=== PATIENT | female | born 1950 | race Caucasian/White ===

== ENCOUNTER 2019-03-29 10:15 | Inpatient (IN) | payer MEDICARE ==
[~2019-03-29] VITALS: Ht 165.1 cm; Wt 88.2 kg
[2019-03-29 12:00] VITALS: BP 149/75
[2019-03-29] MEDS ORDERED: CEPH-264 PO (13:23)
[2019-03-29] MEDS ORDERED: FAMO40TA4 PO (13:23)
[2019-03-29] MEDS ORDERED: ASPI-630 PO (13:23)
[2019-03-29] MEDS ORDERED: AMLO10TA8 PO (13:23)
[2019-03-29] MEDS ORDERED: QUET25TA5 PO (13:23)
[2019-03-29] MEDS ORDERED: VENL150C PO (13:23)
[2019-03-29] MEDS ORDERED: ATOR40TA59 PO (13:23)
[2019-03-29] MEDS ORDERED: MAG HYDROX/AL HYDROX/SIMETH 30 ML ORAL.SUSP PO PRN (13:30)
[2019-03-29] MEDS ORDERED: MAGNESIUM HYDROXIDE 2,400 MG/30 ML ORAL.SUSP. PO PRN (13:30)
--- NOTE | 2019-03-29 13:38 | NUR ---
Admission Note with Justification for Admission to [facility] Patient admitted to [facility] for protective oversight for emergency stabilization of acute psychiatric crisis. Pt admitted from: [facility] Mode of arrival: Secure Transport Accompanied By: Family Precipitating behaviors that initiated intake and admission: delusional, labile mood, manic, verbally aggressive, depression, manipulative, anxious, suicidal thoughts with no plan, brother committed suicide 5 years ago in front of her and has struggled since. Description of failure of out patient attempts at stabilization in previous setting list behavior and medication trials: Hospitalization, Ativan, Effexor XR, Seroquel Behaviors and assessment findings upon admission: calm, cooperative, compliant, hyperverbal Plan: Admit for protective oversight for adjustment and stabilization of medications, behaviors and mood. Intense treatment regimen including groups, medication adjustments, therapy, consistent regimen for ADL's, self care, and sleep hygiene. Daily monitoring by Inpatient staff, Psychiatry, and Medical Physician.
[2019-03-29] MEDS ORDERED: QUEtiapine 25 MG TABLET. PO SCH ×2 (13:45)
[2019-03-29] MEDS ORDERED: VENLAFAXINE 50 MG TABLET. PO SCH (14:00)
[2019-03-29 14:01] LABS: BASO # 0.1 x10^3/uL (0.0-0.2); BASO % 1 % (0-3); EOS # 0.2 x10^3/uL (0.0-0.7); EOS % 3 % (0-3); HEMATOCRIT 31.7 % (36.0-47.0); HEMOGLOBIN 10.4 g/dL (12.0-15.5); LYMPH # 1.7 x10^3/uL (1.0-4.8); LYMPH % 26 % (24-48); MEAN CORPUSCULAR HEMOGLOBIN 29 pg (25-35); MEAN CORPUSCULAR HGB CONC 33 g/dL (31-37); MEAN CORPUSCULAR VOLUME 87 fL (79-100); MONO # 0.4 x10^3/uL (0.0-1.1); MONO % 6 % (0-9); NEUT # 4.2 x10^3uL (1.8-7.7); NEUT % 64 % (31-73); PLATELET COUNT 498 x10^3/uL (140-400); RED BLOOD COUNT 3.63 x10^6/uL (3.50-5.40); RED CELL DISTRIBUTION WIDTH 16.2 % (11.5-14.5); WHITE BLOOD COUNT 6.5 x10^3/uL (4.0-11.0)
[2019-03-29 14:09] LABS: ALBUMIN 3.1 g/dL (3.4-5.0); ALBUMIN/GLOBULIN RATIO 0.8 (1.0-1.7); CALCIUM 9.4 mg/dL (8.5-10.1); CREATININE 0.8 mg/dL (0.6-1.0); GFR 71.1; MAGNESIUM 1.6 mg/dL (1.8-2.4); POTASSIUM 3.8 mmol/L (3.5-5.1); TOTAL BILIRUBIN 0.3 mg/dL (0.2-1.0); TOTAL PROTEIN 6.9 g/dL (6.4-8.2)
--- NOTE | 2019-03-29 14:17 | NUR ---
Patient calm, cooperative, compliant with medications and assessments. Good appetite. Participated in group, social with peers. Effexor XR and Seroquel held due to having been administered this morning at [facility] before transfer to [facility].
[2019-03-29 15:59] VITALS: BP 131/64
--- NOTE | 2019-03-29 16:13 | NUR ---
TICK INSPECTOR reports that patient stated "my son's dog on September 17 from a natural disaster. TICK INSPECTOR then reports that patient changed the story, stating that "my son's dog on a privacy gate because of the heat but we was unable to take it to the hospital because the roads were frozen over. When we got to the hospital they couldn't do an autopsy because the body was frozen solid."
[2019-03-29] MEDS: ACETAMINOPHEN 325 MG TABLET PO PRN (18:23)
--- NOTE | 2019-03-29 18:24 | NUR ---
Patient complains of left knee pain, rates it at a 10 when she is standing up or walking. Medicated with PRN Tylenol 650mg at 1830.
[2019-03-29] MEDS ORDERED: ATORVASTATIN CALCIUM 20 MG TABLET PO SCH (21:00)
[2019-03-29] MEDS: LACTOBACILLUS RHAMNOSUS GG 1 CAPSULE. PO SCH (21:36)
[2019-03-29] MEDS: CEPHALEXIN 250 MG CAPSULE PO SCH (21:36)
[2019-03-29 22:07] LABS: THYROXINE 8.8 ug/dL (4.5-12.0)
--- NOTE | 2019-03-29 22:26 | PDOC ---
Exam Note: Gabe Note: Please also refer to the separate dictated note~for this date of service dictated separately. Discussed the patient with Nursing staff reviewed the chart.~Reviewed interim history and current functioning. Reviewed vital signs,~Labs/ Radiology~and current medications noted below. Continue current treatment with the changes noted in the dictated addendum note Assessment: Vital Signs/I&O: Vital Signs Date Time Temp Pulse Resp B/P (MAP) Pulse Ox O2 Delivery O2 Flow Rate FiO2 03/29/19 15:59 97.6 101 20 131/64 (86) 94 Labs: Laboratory Tests Test 03/29/19 13:45 White Blood Count 6.5 x10^3/uL (4.0-11.0) Red Blood Count 3.63 x10^6/uL (3.50-5.40) Hemoglobin 10.4 g/dL (12.0-15.5) L Hematocrit 31.7 % (36.0-47.0) L Mean Corpuscular Volume 87 fL (79-100) Mean Corpuscular Hemoglobin 29 pg (25-35) Mean Corpuscular Hemoglobin Concent 33 g/dL (31-37) Red Cell Distribution Width 16.2 % (11.5-14.5) H Platelet Count 498 x10^3/uL (140-400) H Neutrophils (%) (Auto) 64 % (31-73) Lymphocytes (%) (Auto) 26 % (24-48) Monocytes (%) (Auto) 6 % (0-9) Eosinophils (%) (Auto) 3 % (0-3) Basophils (%) (Auto) 1 % (0-3) Neutrophils # (Auto) 4.2 x10^3uL (1.8-7.7) Lymphocytes # (Auto) 1.7 x10^3/uL (1.0-4.8) Monocytes # (Auto) 0.4 x10^3/uL (0.0-1.1) Eosinophils # (Auto) 0.2 x10^3/uL (0.0-0.7) Basophils # (Auto) 0.1 x10^3/uL (0.0-0.2) Sodium Level 134 mmol/L (136-145) L Potassium Level 3.8 mmol/L (3.5-5.1) Chloride Level 98 mmol/L (98-107) Carbon Dioxide Level 26 mmol/L (21-32) Anion Gap 10 (6-14) Blood Urea Nitrogen 9 mg/dL (7-20) Creatinine 0.8 mg/dL (0.6-1.0) Estimated GFR (Cockcroft-Gault) 71.1 BUN/Creatinine Ratio 11 (6-20) Glucose Level 119 mg/dL (70-99) H Calcium Level 9.4 mg/dL (8.5-10.1) Magnesium Level 1.6 mg/dL (1.8-2.4) L Total Bilirubin 0.3 mg/dL (0.2-1.0) Aspartate Amino Transferase (AST) 27 U/L (15-37) Alanine Aminotransferase (ALT) 50 U/L (14-59) Alkaline Phosphatase 66 U/L (46-116) Total Protein 6.9 g/dL (6.4-8.2) Albumin 3.1 g/dL (3.4-5.0) L Albumin/Globulin Ratio 0.8 (1.0-1.7) L Thyroxine (T4) 8.8 ug/dL (4.5-12.0) Total Triiodothyronine (TT3) 107 ng/dL (71-180) Current Medications: Meds: Current Medications Medications (Trade) Dose Ordered Sig/Mickey Route PRN Reason Start Time Stop Time Status Last Admin Dose Admin Cephalexin HCl (Keflex) 500 mg BID PO 03/29/19 21:00 04/01/19 20:59 03/29/19 21:36 Acetaminophen (Tylenol) 650 mg PRN Q6HRS PRN PO PAIN / TEMP 03/29/19 13:30 03/29/19 18:23 Lactobacillus Rhamnosus (Culturelle) 1 cap BID PO 03/29/19 21:00 03/29/19 21:36 I have reviewed the current psychotropics carefully including drug interactions. Risk benefit ratio favors no change other than as noted in my dictated progress note. Diagnosis: Problems: (1) Anxiety disorder (2) Mild cognitive disorder (3) Impulse control disorder AMBER SWAIN MD Mar 29, 2019 22:26
[2019-03-29 23:11] LABS: HEMOGLOBIN A1C 5.7 % (4.8-5.6)
--- NOTE | 2019-03-29 23:26 | NUR ---
Nursing note: Assumed care of pt. this evening, she was sitting out in the day room. She has been liable. cooperative, and angry about being here. She stated, "this place is different then what I was told, I did not know their was going to be polo's here. I want a jury." This hand sign writer explained to her that this is a hospital, so their will be polo's here. Encouraged her to talk with are high school social science teacher tomorrow. She has been compliant with taking her HS meds whole this evening. She has not been combative at this time. Called Dr. Peterson due to pt. being upset/anxiety, received order see MAR.
[2019-03-30 06:39] VITALS: BP 150/75
[2019-03-30] MEDS: CEPHALEXIN 250 MG CAPSULE PO SCH ×2 (08:04→19:50)
[2019-03-30] MEDS: LACTOBACILLUS RHAMNOSUS GG 1 CAPSULE. PO SCH ×2 (08:04→19:49)
[2019-03-30] MEDS: FAMOTIDINE 20 MG TABLET PO SCH (08:07)
[2019-03-30] MEDS: ASPIRIN ENTERIC COATED 81 MG TABLET.DR. PO SCH (08:08)
[2019-03-30] MEDS: VENLAFAXINE 50 MG TABLET. PO SCH ×3 (08:08→19:53)
[2019-03-30] MEDS: amLODIPine BESYLATE 10 MG TABLET PO SCH (08:08)
--- NOTE | 2019-03-30 12:27 | HP ---
ADMIT DATE: 03/29/2019 PSYCHIATRIC ADMISSION HISTORY AND EVALUATION This is a late entry, date of service 03/29 and covers elements not covered in my initial note of 03/29. IDENTIFYING DATA: The patient is a 68-year-old female referred to us from [facility] in [place] by Dr. Jeremy Arcos, her primary care physician on account of worsening delusions, marked mood lability, being manic, verbally aggressive, voicing suicidal thoughts, but no plan. Reportedly, her brother committed suicide 5 years ago and she has struggled since then. She has been hospitalized at [facility] in [place] for the past 10 days with worsening confusion, agitation, depression in association with marked mood lability, being manic, verbally aggressive, manipulative with suicidal ideation and failure for outpatient psychiatric intervention. We have been asked to consider hospitalizing the patient a few days back when she was still being medically stabilized and then finally admitted on 03/29. CHIEF COMPLAINT: "I'm okay." HISTORY OF PRESENT ILLNESS: The patient has a history of increasing symptoms of depression with recent increased short-term memory deficits and paranoia. She did have a UTI and this was treated at [facility]. She has had sleep and appetite changes. No active homicidal ideation, but has been quite paranoid. PAST PSYCHIATRIC HISTORY: As above and she has had outpatient psychiatric treatment, though details are unclear. It might have been with Dr. Luna and we will obtain those records. PAST MEDICAL HISTORY: Positive for status post UTI; otitis media, right ear; chronic pansinusitis; hypertension; GERD; hearing loss; hyperlipidemia; osteoarthritis; restless leg syndrome; status post cataract removal; submucosal resection of turbinates; sinus endoscopy, bilateral endoscopic sinus surgery; tonsillectomy. ACCU-CHEKS: None. DIET: Cardiac. MEDICATIONS: Takes it whole. Ambulates with walker with 2-person assist. CODE STATUS: DNR. ALLERGIES: Negative. CURRENT PSYCHOTROPICS: Effexor XR 150 mg a day, Seroquel 25 mg at 1700, Zyprexa was added p.r.n. after I was called around midnight of last night after I had seen the patient and she was noted to be quite delusional, agitated, difficult to manage on the unit. FAMILY HISTORY: Noncontributory. SOCIAL HISTORY: The patient resides at home with her . Her son is her legal guardian. REACTION TO HOSPITALIZATION: The patient reluctantly accepting of this. ASSETS: Supportive family. MENTAL STATUS EXAMINATION: The patient was seen individually in evening of 03/29. She is oriented to herself and situation. She is hard of hearing, has some tremors consequent to anxiety and did better on Ativan. No CV, , pulmonary, eye system symptoms on review. Her speech is coherent. She is depressed, anxious, somewhat paranoid. No active suicidal or homicidal ideation. She does have some short-term memory deficits. Attention span short. Language function intact. Intellect average. Insight somewhat limited. Minimizes most of the problems prompting admission. No active suicidal or homicidal ideation. She minimizes suicidal ideation prior to admission. She is alert, oriented x 3. IMPRESSION: Major depressive disorder with psychotic features in partial remission, rule out bipolar 1 disorder, mixed with psychotic features; anxiety disorder, unspecified; mild cognitive impairment. Rest diagnoses as above. PLAN: Admit to geropsychiatry unit at [facility]. I will see the patient daily individually from a psychiatric standpoint. Medical followup with Dr. Hamm. The patient has completed a course of Rocephin and started on Keflex for her UTI. We will continue current psychotropics, observe baseline, then make further adjustments as clinically indicated. ESTIMATED LENGTH OF STAY: 7-10 days. DISPOSITION PLANS: Possibly back home with outpatient psychiatric treatment that time. MAN Daren SWAIN MD DR: REY/nabor JOB#: [id number] / [id number]
[2019-03-30] MEDS: ACETAMINOPHEN 325 MG TABLET PO PRN (15:50)
[2019-03-30 16:40] VITALS: BP 130/77
--- NOTE | 2019-03-30 16:51 | NUR ---
Pt calm and compliant with meds and assessment. Pt concerned about her belongings. This nurse found what pt was looking for in pt closet. Also pt asking about her lorazepam which is not on her mar. Pt upset that it was taken off her med list.
[2019-03-30] MEDS: QUEtiapine 25 MG TABLET. PO SCH (17:23)
[2019-03-30] MEDS: CHOLECALCIFEROL (VITAMIN D3) 50,000 UNIT CAPSULE PO SCH (18:00)
[2019-03-30] MEDS: ATORVASTATIN CALCIUM 20 MG TABLET PO SCH (19:53)
--- NOTE | 2019-03-30 22:40 | PDOC ---
Exam Note: Gabe Note: Please also refer to the separate dictated note~for this date of service dictated separately.~Patient seen individually. Discussed the patient with Nursing staff reviewed the chart.~Reviewed interim history and current functioning. Reviewed vital signs,~Labs/ Radiology~and current medications noted below. Continue current treatment with the changes noted in the dictated addendum note Assessment: Vital Signs/I&O: Vital Signs Date Time Temp Pulse Resp B/P (MAP) Pulse Ox O2 Delivery O2 Flow Rate FiO2 03/30/19 16:40 98.3 101 20 130/77 (94) 97 Room Air I & O 03/29/19 03/29/19 03/30/19 14:59 22:59 06:59 Intake Total 120 ml Balance 120 ml Current Medications: Meds: Current Medications Medications (Trade) Dose Ordered Sig/Mickey Route PRN Reason Start Time Stop Time Status Last Admin Dose Admin Amlodipine Besylate (Norvasc) 10 mg DAILY PO 03/30/19 09:00 03/30/19 08:08 Aspirin (Aspirin Enteric Coated) 81 mg DAILYWBKFT PO 03/30/19 08:00 03/30/19 08:08 Famotidine (Pepcid) 40 mg DAILY PO 03/30/19 09:00 03/30/19 08:07 Atorvastatin Calcium (Lipitor) 40 mg QHS PO 03/30/19 21:00 03/30/19 19:53 Quetiapine Fumarate (SEROquel) 25 mg 1700 PO 03/30/19 17:00 03/30/19 17:23 Venlafaxine HCl (Effexor) 50 mg TID PO 03/30/19 09:00 03/30/19 19:53 I have reviewed the current psychotropics carefully including drug interactions. Risk benefit ratio favors no change other than as noted in my dictated progress note. Diagnosis: Problems: (1) Anxiety disorder (2) Mild cognitive disorder (3) Impulse control disorder AMBER SWAIN MD Mar 30, 2019 22:40
--- NOTE | 2019-03-30 23:56 | NUR ---
Nursing Note Pt is pleasant and cooperative, but bordering on demanding. She has multiple requests and demands regarding her bedding, elevation of the head and feet of the bed, and insists on looking at her belongings. She is perseverating on the fact that she was told she could have 3 sets of clothing, and 3 sets of PJ's., and she has been only given one set of PJ's to wear. Upon looking at the inventory sheet, she did not have 3 PJ sets only 1. She is hyperverbal this pm, and very tangential. It is difficult to get a word in to redirect her. She goes on and on talking from topic to topic, although they have a common thread, it is still constant and manic in nature. She is also loud, and a bit grandiose when talking about her incredibly successful children.
--- NOTE | 2019-03-31 06:27 | EKG ---
[address] [address] Test Date: 2019-03-29 Test Time: 21:42:16 Pat Name: LUDIN MENESES Department: Room: [address] [place] [address] Gender: F Product Marketer: : 1950 Requested By: AMBER SWAIN Order Number: [id number] Reading MD: Measurements Intervals [place] Rate: P: [place]: QRS: QRSD: T: QT: QTc: Interpretive Statements
[2019-03-31 06:28] VITALS: BP 116/77
[2019-03-31] MEDS: ASPIRIN ENTERIC COATED 81 MG TABLET.DR. PO SCH (08:32)
[2019-03-31] MEDS: VENLAFAXINE 50 MG TABLET. PO SCH ×3 (08:32→19:26)
[2019-03-31] MEDS: LACTOBACILLUS RHAMNOSUS GG 1 CAPSULE. PO SCH ×2 (08:32→19:26)
[2019-03-31] MEDS: FAMOTIDINE 20 MG TABLET PO SCH (08:33)
[2019-03-31] MEDS: CEPHALEXIN 250 MG CAPSULE PO SCH ×2 (08:33→19:26)
[2019-03-31] MEDS: amLODIPine BESYLATE 10 MG TABLET PO SCH (08:33)
--- NOTE | 2019-03-31 10:56 | NUR ---
Pt has been hyperverbal and anxious this morning. Pt walked in the dining room this morning and greeted everyone as she passed. Pt hollers out "Jenna, Jenna" each time she passes this nurse. Pt A/Ox4. Compliant with whole medications. Pt denies SI and depression, stating that she feels better than she has in a long time. Will continue to monitor.
--- NOTE | 2019-03-31 15:11 | NUR ---
Activity Therapy Assessment Completed based on observation and interview. Pt. was in the day room and greeted therapist. Pt. uses a walker to ambulate and is fairly sturdy on her feet. Pt. is hyperverbal and tangential, needing gentle redirection to stay on topic. Pt. lives with her , Beny, in [place]. She has a son and a daughter that she sees fairly often and one grandchild that she 'spoils rotten'. Pt. goes by her middle name 'Lashawn' and is aware she is at the hospital, stating her reason for admission as 'depression I guess but I have been feeling better that I have felt in a long time'. It was revealed to therapist that Pt. has a current UTI and is receiving treatment for it. Pt. attends most groups and seems interested in most leisure activities, though she was unable to list specific ones when therapist asked. Pt. speaks clearly and rapidly, socializes well with others, can be anxious at times but easily redirected. Pt. enjoys taking her grandson to the movies and has seemed to enjoy trivia activities as well as games and spending time in the garden. Initial goal aimed to increase stress management skill and leisure awareness: Pt. will engage in at least one Activity Therapy group per day.
[2019-03-31] MEDS: ACETAMINOPHEN 325 MG TABLET PO PRN ×2 (15:39→20:51)
[2019-03-31] MEDS: QUEtiapine 25 MG TABLET. PO SCH ×3 (15:39→19:27)
[2019-03-31 15:58] VITALS: BP 164/69
--- NOTE | 2019-03-31 16:17 | CONS ---
DATE OF CONSULTATION: 03/30/2019 REASON FOR CONSULTATION: Medical management. HISTORY OF PRESENT ILLNESS: The patient is a 68-year-old female patient who was referred to [facility] from [facility] in [place] by Dr. Jeremy Arcos, her primary care physician, on account of worsening delusion, marked mood lability, being manic, verbally aggressive, voicing suicidal thoughts, but no plans. Reportedly, her brother committed suicide 5 years ago and she has struggled with this since then. She has been hospitalized to [facility] in [place] for the past 10 days with worsening confusion, agitation, depression in association with marked mood lability being manic, manipulative with suicidal ideation, failure for outpatient psychiatric intervention and she was admitted for inpatient psychiatric stabilization. PAST PSYCHIATRIC HISTORY: Significant for recent increased short term memory symptoms, depression. She was actually treated for UTI at [facility]. PAST MEDICAL HISTORY: Significant for otitis media, right ear, chronic pansinusitis, hypertension, gastroesophageal reflux disease, hearing loss, hyperlipidemia, osteoarthritis, restless leg syndrome. She has also recurrent UTIs. PAST SURGICAL HISTORY: Significant for cataract extraction, submucosal resection of turbinates and sinus endoscopy, bilateral endoscopic sinus surgery and tonsillectomy. ALLERGIES: She has no known drug allergies. CODE STATUS is DNR/DNI. FAMILY HISTORY: Noncontributory. SOCIAL HISTORY: The patient resides at home with her . She has a son and a daughter. She does not smoke, drink alcohol or do recreational drugs. She is retired. She used to be self-employed, cleaning houses. ALLERGIES: She has no known drug allergies. MEDICATIONS: She is currently on following medications: She is on cephalexin 500 mg twice a day for 3 days, atorvastatin calcium 40 mg at bedtime, amlodipine 10 mg once a day, aspirin 81 mg once a day, venlafaxine 150 mg once a day, quetiapine fumarate 25 mg at bedtime and famotidine 40 mg daily. PHYSICAL EXAMINATION: GENERAL: On examining her, she was sitting comfortably in her chair, in no apparent respiratory distress. She was slightly pale, but no jaundice, cyanosis, or thyromegaly. No jugular venous distension. No limb edema. VITAL SIGNS: Her heart rate was 101, blood pressure 130/77, temperature was 98.3, respiratory rate 20, and oxygen saturation was 97%. HEAD, EYES, EARS, NOSE, AND THROAT: Showed normocephalic, atraumatic. NECK: Supple. HEART: Showed normal first and second heart sounds. No gallop, rub or murmur. CHEST: Clear to auscultation. No crepitation or rhonchi. ABDOMEN: Distended, soft, nontender. NEUROLOGIC: She is awake, alert, responding appropriately. All cranial nerves intact. EXTREMITIES: She moves extremities without difficulty. She ambulates with a walker. LABORATORY DATA: Her lab work showed that her white cell count was 6500, hemoglobin 10, hematocrit 32, MCV 87, and platelet count 498,000. Her chemistry showed a serum sodium 134, potassium 3.8, chloride 98, bicarbonate 26, anion gap of 10, BUN 9, creatinine 0.8, estimated GFR was 71 mL per minute. Her glucose 119, calcium was 9.4, magnesium was 1.6. Total bilirubin, ALT, alkaline phosphatase were normal. Total protein was 6.9, albumin 3.1. Serum triglycerides were 62. Total cholesterol was 63, LDL was 66, VLDL was 12, and HDL was 85. The ratio was 1. Her 25-hydroxy vitamin D was low at 29, total T4 and total T3 are normal. Her hemoglobin A1c was 5.7. Serum iron, TIBC and iron saturation are all normal. Her Treponema pallidum antibodies were nonreactive. IMPRESSION: In summary, this is a 68-year-old female patient who was admitted on account of being confused, agitated, depressed manipulative with suicidal ideation and failure for outpatient psychiatric intervention. Medically, she is overall stable and all her vital signs are normal. All her lab works are within acceptable range. She has vitamin D deficiency for which she was started on ergocalciferol 50,000 units once a week. She does have protein-calorie malnutrition with serum albumin is only 3.1 g/dL. She also has what seems to be normochromic normocytic anemia. I will definitely continue her on all her current medication. We will follow her lab works and make any necessary adjustment and recommendation. Thank you, Dr. Peterson for allowing me to participate in the care of this patient. NEERAJ PERRY MD DR: GERMAIN/nabor JOB#: [id number] / [id number]
[2019-03-31] MEDS: ATORVASTATIN CALCIUM 20 MG TABLET PO SCH (19:26)
[2019-03-31] MEDS: METHYL SALICYLATE/MENTHOL TOPICAL OINTMENT 29GM TUBE. TP PRN (21:22)
--- NOTE | 2019-03-31 21:24 | PN ---
DATE: 03/30/2019 PSYCHIATRIC PROGRESS NOTE This late entry 03/30/2019 covers elements not covered in my initial note. SUBJECTIVE: I met with the patient in the evening of 03/30/2019 and staffed at a treatment team meeting with the entire team in the morning. Overall, the patient remains somewhat anxious with some short-term memory deficits. She has been somewhat labile with her mood on the unit. No suicidal or homicidal ideation. REVIEW OF SYSTEMS: No CV, , pulmonary, eye system symptoms on review. MENTAL STATUS EXAM: Oriented to herself and situation. Speech is coherent, has some latency. Abstraction fair, computation impaired, language function intact, attention span short. Mood is somewhat dysphoric, anxious. No suicidal or homicidal ideation. LABORATORY DATA: Reviewed. IMPRESSION: Major depressive disorder, recurrent, severe with psychotic features, personality disorder, urinary tract infection, anxiety disorder, unspecified; mild cognitive impairment. PLAN: Treat the UTI and the patient is on Keflex for this. We will obtain psychiatric records from her prior Behavioral Health providers Rhonda Barton and Dandre Rodriguez. Continue Seroquel 25 mg daily, Effexor XR 150 mg a day. We will increase Seroquel in a day or so to 50 mg a day. Rest unchanged for now. AMBER SWAIN MD DR: REY/nabor JOB#: [id number] / [id number]
--- NOTE | 2019-03-31 22:15 | PDOC ---
Exam Note: Gabe Note: Please also refer to the separate dictated note~for this date of service dictated separately.~Patient seen individually. Discussed the patient with Nursing staff reviewed the chart.~Reviewed interim history and current functioning. Reviewed vital signs,~Labs/ Radiology~and current medications noted below. Continue current treatment with the changes noted in the dictated addendum note Assessment: Vital Signs/I&O: Vital Signs Date Time Temp Pulse Resp B/P (MAP) Pulse Ox O2 Delivery O2 Flow Rate FiO2 03/31/19 15:58 97.6 102 20 164/69 (100) 94 Room Air I & O 03/30/19 03/30/19 03/31/19 15:00 23:00 07:00 Intake Total 960 ml 480 ml Balance 960 ml 480 ml Current Medications: Meds: Current Medications Medications (Trade) Dose Ordered Sig/Mickey Route PRN Reason Start Time Stop Time Status Last Admin Dose Admin Quetiapine Fumarate (SEROquel) 25 mg BID@1700,2100 PO 03/31/19 17:00 03/31/19 19:27 I have reviewed the current psychotropics carefully including drug interactions. Risk benefit ratio favors no change other than as noted in my dictated progress note. Diagnosis: Problems: (1) Anxiety disorder (2) Mild cognitive disorder (3) Impulse control disorder (4) Major depressive disorder with psychotic features (5) Major depressive disorder in partial remission AMBER SWAIN MD Mar 31, 2019 22:15
--- NOTE | 2019-03-31 22:37 | NUR ---
Nursing Note Pt is hyperverbal, has lots of requests, I wouldn't necessarily call them demands because she is polite and thankful when granted. She is very particular about her bed and linens. Talks with fight of ideas, and hyperverbal speech pattern.
[2019-04-01 05:30] VITALS: BP 158/78
[2019-04-01] MEDS: VENLAFAXINE 50 MG TABLET. PO SCH ×3 (08:19→19:19)
[2019-04-01] MEDS: CEPHALEXIN 250 MG CAPSULE PO SCH (08:19)
[2019-04-01] MEDS: LACTOBACILLUS RHAMNOSUS GG 1 CAPSULE. PO SCH ×2 (08:19→19:19)
[2019-04-01] MEDS: ASPIRIN ENTERIC COATED 81 MG TABLET.DR. PO SCH (08:19)
[2019-04-01] MEDS: FAMOTIDINE 20 MG TABLET PO SCH (08:19)
[2019-04-01] MEDS: amLODIPine BESYLATE 10 MG TABLET PO SCH (08:19)
[2019-04-01] MEDS: ACETAMINOPHEN 325 MG TABLET PO PRN ×2 (10:57→22:05)
[2019-04-01] MEDS: METHYL SALICYLATE/MENTHOL TOPICAL OINTMENT 29GM TUBE. TP PRN ×2 (11:02→22:05)
[2019-04-01 15:35] VITALS: BP 137/74
--- NOTE | 2019-04-01 15:51 | NUR ---
Patient med compliant today, she interacts well with staff/peers, she requested tylenol this am for a headache, she made a few phone calls, ambulates without difficulty with her walker, received visitation x 2 today
[2019-04-01] MEDS: QUEtiapine 25 MG TABLET. PO SCH ×2 (16:18→19:19)
[2019-04-01] MEDS: ATORVASTATIN CALCIUM 20 MG TABLET PO SCH (19:19)
--- NOTE | 2019-04-01 23:04 | NUR ---
Pt has been withdrawn to her room this evening, hyperverbal when approached. Pt is compliant with whole medications. Very particular with her requests. PRN Tylenol, Zyprexa and analgesic balm administered with HS medications.
--- NOTE | 2019-04-01 23:08 | PDOC ---
Exam Note: Gabe Note: Please also refer to the separate dictated note~for this date of service dictated separately.~Patient seen individually. Discussed the patient with Nursing staff reviewed the chart.~Reviewed interim history and current functioning. Reviewed vital signs,~Labs/ Radiology~and current medications noted below. Continue current treatment with the changes noted in the dictated addendum note Assessment: Vital Signs/I&O: Vital Signs Date Time Temp Pulse Resp B/P (MAP) Pulse Ox O2 Delivery O2 Flow Rate FiO2 04/01/19 15:35 97.4 99 18 137/74 (95) 99 04/01/19 05:30 Room Air I & O 03/31/19 03/31/19 04/01/19 15:00 23:00 07:00 Intake Total 600 ml 240 ml 240 ml Balance 600 ml 240 ml 240 ml Current Medications: I have reviewed the current psychotropics carefully including drug interactions. Risk benefit ratio favors no change other than as noted in my dictated progress note. Diagnosis: Problems: (1) Anxiety disorder (2) Mild cognitive disorder (3) Impulse control disorder (4) Major depressive disorder with psychotic features (5) Major depressive disorder in partial remission AMBER SWAIN MD Apr 01, 2019 23:08
[2019-04-02 06:20] VITALS: BP 166/88
[2019-04-02] MEDS: VENLAFAXINE 50 MG TABLET. PO SCH ×3 (07:44→19:43)
[2019-04-02] MEDS: FAMOTIDINE 20 MG TABLET PO SCH (07:44)
[2019-04-02] MEDS: amLODIPine BESYLATE 10 MG TABLET PO SCH (07:44)
[2019-04-02] MEDS: LACTOBACILLUS RHAMNOSUS GG 1 CAPSULE. PO SCH ×2 (07:44→19:43)
[2019-04-02] MEDS: FLUTICASONE 50MCG/NASAL SPRAY 16GM BOTTLE. NS SCH (07:45)
[2019-04-02] MEDS: ASPIRIN ENTERIC COATED 81 MG TABLET.DR. PO SCH (07:45)
[2019-04-02 16:18] VITALS: BP 128/74
[2019-04-02] MEDS: QUEtiapine 25 MG TABLET. PO SCH ×2 (17:00→19:43)
--- NOTE | 2019-04-02 18:23 | NUR ---
pt up adl to meals. pt has been hyperverbal and attention seeking at times. Has also been demanding at times. Pt is methodical with daily routines. Has been compliant with meds and cares.
[2019-04-02] MEDS: ATORVASTATIN CALCIUM 20 MG TABLET PO SCH (19:43)
[2019-04-02] MEDS: METHYL SALICYLATE/MENTHOL TOPICAL OINTMENT 29GM TUBE. TP PRN (21:18)
[2019-04-02] MEDS: ACETAMINOPHEN 325 MG TABLET PO PRN (21:18)
--- NOTE | 2019-04-02 21:46 | PDOC ---
Exam Note: Gabe Note: Please also refer to the separate dictated note~for this date of service dictated separately.~Patient seen individually. Discussed the patient with Nursing staff reviewed the chart.~Reviewed interim history and current functioning. Reviewed vital signs,~Labs/ Radiology~and current medications noted below. Continue current treatment with the changes noted in the dictated addendum note Assessment: Vital Signs/I&O: Vital Signs Date Time Temp Pulse Resp B/P (MAP) Pulse Ox O2 Delivery O2 Flow Rate FiO2 04/02/19 16:18 98.6 84 20 128/74 (92) 94 04/02/19 06:20 Room Air I & O 04/01/19 04/01/19 04/02/19 15:00 23:00 07:00 Intake Total 960 ml 240 ml 240 ml Balance 960 ml 240 ml 240 ml Current Medications: Meds: Current Medications Medications (Trade) Dose Ordered Sig/Mickey Route PRN Reason Start Time Stop Time Status Last Admin Dose Admin Fluticasone Propionate (Flonase) 2 spray DAILY NS 04/02/19 09:00 04/02/19 07:45 I have reviewed the current psychotropics carefully including drug interactions. Risk benefit ratio favors no change other than as noted in my dictated progress note. Diagnosis: Problems: (1) Anxiety disorder (2) Mild cognitive disorder (3) Impulse control disorder (4) Major depressive disorder with psychotic features (5) Major depressive disorder in partial remission AMBER SWAIN MD Apr 02, 2019 21:46
--- NOTE | 2019-04-02 22:50 | PN ---
DATE: 03/31/2019 PSYCHIATRIC PROGRESS NOTE This late entry 03/31/2019 covers elements not covered in my initial note SUBJECTIVE: I met with the patient in the evening. The patient slept 5-1/2 hours previous night. She is reasonably oriented, somewhat hyperverbal, hypomanic, anxious. Denies suicidal ideation and states that she felt better than she had felt in a long time. REVIEW OF SYSTEMS: No CV, , pulmonary, eye, ENT system symptoms on review, does complain of some problems with GERD, but she is on Pepcid for this. MENTAL STATUS EXAM: Reasonably oriented. Speech is coherent, abstraction fair, computation impaired, language function intact, attention span short. Mood and affect showing improvement. LABORATORY DATA: Reviewed. IMPRESSION: Unchanged from initial note. PLAN: Start Seroquel 25 mg p.o. at bedtime in addition to the 25 mg she receives at 1700. Maintain Effexor along with Zyprexa p.r.n. Rest unchanged for now. Seroquel is to augment Effexor. AMBER SWAIN MD DR: REY/nabor JOB#: [id number] / [id number]
--- NOTE | 2019-04-02 23:06 | PN ---
DATE: 04/01/2019 This late entry 04/01/2019 covers elements not covered in my initial note. SUBJECTIVE: I met with the patient evening of 04/01/2019. The patient slept 5 hours previous evening. She has been polite, cooperative, alert, oriented, has 2 visitors and was pleased with this. REVIEW OF SYSTEMS: No CV, , pulmonary, eye, ENT system symptoms on review. MENTAL STATUS EXAM: Reasonably oriented. Speech coherent, somewhat pressured. Abstraction fair, computation impaired, language function intact, attention span short. Mood and affect showing improvement. LABORATORY DATA: Reviewed. IMPRESSION: Unchanged from initial note. PLAN: No change from initial note. AMBER SWAIN MD DR: REY/nabor JOB#: [id number] / [id number]
--- NOTE | 2019-04-02 23:17 | NUR ---
Pt has been irritable and hyperverbal this evening. Pt is very particular with how she wants her medications, her feet elevated, her covers laid over her, etc. Compliant with whole medications. Denies SI.
[2019-04-03 06:52] VITALS: BP 162/76
[2019-04-03] MEDS: ASPIRIN ENTERIC COATED 81 MG TABLET.DR. PO SCH (08:09)
[2019-04-03] MEDS: FAMOTIDINE 20 MG TABLET PO SCH (08:09)
[2019-04-03] MEDS: LACTOBACILLUS RHAMNOSUS GG 1 CAPSULE. PO SCH ×2 (08:10→20:09)
[2019-04-03] MEDS: amLODIPine BESYLATE 10 MG TABLET PO SCH (08:10)
[2019-04-03] MEDS: VENLAFAXINE 50 MG TABLET. PO SCH ×3 (08:10→20:09)
[2019-04-03] MEDS: FLUTICASONE 50MCG/NASAL SPRAY 16GM BOTTLE. NS SCH (08:11)
[2019-04-03] MEDS: ACETAMINOPHEN 325 MG TABLET PO PRN ×2 (09:17→20:09)
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
--- NOTE | 2019-04-03 12:47 | NUR ---
Phone call with Axel, spouse/guardian. Axel plans to be involved in team meeting on 04/06/19 and is going to provide his daughter's phone number as well so she can also listen in to the progress report. Lashawn was involved in SW group this morning and actively participated. She is very social and interacts with her peers. Lashawn expressed her goal is to continue participating in PT so she can discontinue using the walker.
--- NOTE | 2019-04-03 15:56 | NUR ---
Patient was disorganized, restless, hyperverbal, and c/o bilateral knee pain this morning. She was compliant with medications and assessment. She has been in the day room between meals, social and intrusive with other patients, and participating in groups. Will continue to monitor.
[2019-04-03 16:20] VITALS: BP 142/76
[2019-04-03] MEDS: QUEtiapine 25 MG TABLET. PO SCH ×2 (17:05→20:09)
[2019-04-03] MEDS: ATORVASTATIN CALCIUM 20 MG TABLET PO SCH (20:09)
[2019-04-03] MEDS: METHYL SALICYLATE/MENTHOL TOPICAL OINTMENT 29GM TUBE. TP PRN (20:10)
--- NOTE | 2019-04-03 22:19 | NUR ---
Pt has been withdrawn to her room tonight. Pt stated that she is tired and requested her medication early. Pt continues to be very particular with her requests and needs.
--- NOTE | 2019-04-03 22:33 | PDOC ---
Exam Note: Gabe Note: Please also refer to the separate dictated note~for this date of service dictated separately.~Patient seen individually. Discussed the patient with Nursing staff reviewed the chart.~Reviewed interim history and current functioning. Reviewed vital signs,~Labs/ Radiology~and current medications noted below. Continue current treatment with the changes noted in the dictated addendum note Assessment: Vital Signs/I&O: Vital Signs Date Time Temp Pulse Resp B/P (MAP) Pulse Ox O2 Delivery O2 Flow Rate FiO2 04/03/19 16:20 98.4 50 18 142/76 (98) 97 04/02/19 06:20 Room Air I & O 04/02/19 04/02/19 04/03/19 14:59 22:59 06:59 Intake Total 1200 ml 240 ml 0 ml Balance 1200 ml 240 ml 0 ml Current Medications: I have reviewed the current psychotropics carefully including drug interactions. Risk benefit ratio favors no change other than as noted in my dictated progress note. Diagnosis: Problems: (1) Anxiety disorder (2) Mild cognitive disorder (3) Impulse control disorder (4) Major depressive disorder with psychotic features (5) Major depressive disorder in partial remission AMBER SWAIN MD Apr 03, 2019 22:33
[2019-04-04 06:01] VITALS: BP 157/90
[2019-04-04 08:02] LABS: BASO % 1 % (0-3); EOS # 0.3 x10^3/uL (0.0-0.7); EOS % 5 % (0-3); HEMATOCRIT 31.9 % (36.0-47.0); HEMOGLOBIN 10.3 g/dL (12.0-15.5); LYMPH # 1.1 x10^3/uL (1.0-4.8); LYMPH % 23 % (24-48); MEAN CORPUSCULAR HEMOGLOBIN 28 pg (25-35); MEAN CORPUSCULAR HGB CONC 32 g/dL (31-37); MEAN CORPUSCULAR VOLUME 88 fL (79-100); MONO # 0.4 x10^3/uL (0.0-1.1); MONO % 8 % (0-9); NEUT # 3.1 x10^3uL (1.8-7.7); NEUT % 63 % (31-73); PLATELET COUNT 330 x10^3/uL (140-400); RED BLOOD COUNT 3.63 x10^6/uL (3.50-5.40); RED CELL DISTRIBUTION WIDTH 16.5 % (11.5-14.5); WHITE BLOOD COUNT 4.9 x10^3/uL (4.0-11.0)
[2019-04-04] MEDS: ASPIRIN ENTERIC COATED 81 MG TABLET.DR. PO SCH (08:14)
[2019-04-04] MEDS: VENLAFAXINE 50 MG TABLET. PO SCH ×3 (08:14→21:14)
[2019-04-04] MEDS: FAMOTIDINE 20 MG TABLET PO SCH (08:14)
[2019-04-04] MEDS: amLODIPine BESYLATE 10 MG TABLET PO SCH (08:14)
[2019-04-04] MEDS: LACTOBACILLUS RHAMNOSUS GG 1 CAPSULE. PO SCH ×2 (08:15→21:14)
[2019-04-04] MEDS: FLUTICASONE 50MCG/NASAL SPRAY 16GM BOTTLE. NS SCH (08:16)
[2019-04-04 08:23] LABS: ALBUMIN/GLOBULIN RATIO 0.8 (1.0-1.7); CALCIUM 9.5 mg/dL (8.5-10.1); CREATININE 0.7 mg/dL (0.6-1.0); POTASSIUM 4.2 mmol/L (3.5-5.1); TOTAL BILIRUBIN 0.3 mg/dL (0.2-1.0); TOTAL PROTEIN 6.6 g/dL (6.4-8.2)
[2019-04-04] MEDS: ACETAMINOPHEN 325 MG TABLET PO PRN ×2 (12:03→21:14)
[2019-04-04 16:19] VITALS: BP 123/77
--- NOTE | 2019-04-04 16:22 | NUR ---
Patient was disorganized, restless, hyperverbal, and intrusive with other patients this morning. She was compliant with medications and assessment. She c/o knee pain and prn medication was provided per eMAR. She is social and interactive with other patients, and participating in group activities. Will continue to monitor.
[2019-04-04] MEDS: QUEtiapine 25 MG TABLET. PO SCH ×2 (17:31→21:14)
[2019-04-04] MEDS: ATORVASTATIN CALCIUM 20 MG TABLET PO SCH (21:14)
[2019-04-04] MEDS: METHYL SALICYLATE/MENTHOL TOPICAL OINTMENT 29GM TUBE. TP PRN (21:14)
--- NOTE | 2019-04-04 21:59 | PN ---
DATE: 04/02/2019 PYSCHIATRIC PROGRESS NOTE This is a late entry 04/02/2019, covers the elements not covered in my initial note. SUBJECTIVE: I met with the patient at length the evening of 04/02/2019. The patient slept 6 hours previous night. The patient has been hyperverbal, somewhat attention seeking, anxious, depressed and intrusive at times per nursing report. REVIEW OF SYSTEMS: No CVA. , pulmonary, eye, ENT system symptoms on review. MENTAL STATUS EXAMINATION: Oriented to herself and situation. Speech coherent, rapid at times, obstruction fair, competition impaired. Language function intact. Attention span short. Mood and affect, somewhat anxious, labile. LABORATORY DATA: Reviewed. IMPRESSION: Unchanged from the initial note. PLAN: No change from initial note. MAN Daren SWAIN MD DR: REY/nabor JOB#: [id number] / [id number]
--- NOTE | 2019-04-04 22:41 | PDOC ---
Exam Note: Gabe Note: Please also refer to the separate dictated note~for this date of service dictated separately.~Patient seen individually. Discussed the patient with Nursing staff reviewed the chart.~Reviewed interim history and current functioning. Reviewed vital signs,~Labs/ Radiology~and current medications noted below. Continue current treatment with the changes noted in the dictated addendum note Assessment: Vital Signs/I&O: Vital Signs Date Time Temp Pulse Resp B/P (MAP) Pulse Ox O2 Delivery O2 Flow Rate FiO2 04/04/19 16:19 99.6 82 18 123/77 (92) 96 04/04/19 06:01 Room Air I & O 04/03/19 04/03/19 04/04/19 14:59 22:59 06:59 Intake Total 720 ml 340 ml Balance 720 ml 340 ml Labs: Laboratory Tests Test 04/04/19 07:35 White Blood Count 4.9 x10^3/uL (4.0-11.0) Red Blood Count 3.63 x10^6/uL (3.50-5.40) Hemoglobin 10.3 g/dL (12.0-15.5) L Hematocrit 31.9 % (36.0-47.0) L Mean Corpuscular Volume 88 fL (79-100) Mean Corpuscular Hemoglobin 28 pg (25-35) Mean Corpuscular Hemoglobin Concent 32 g/dL (31-37) Red Cell Distribution Width 16.5 % (11.5-14.5) H Platelet Count 330 x10^3/uL (140-400) Neutrophils (%) (Auto) 63 % (31-73) Lymphocytes (%) (Auto) 23 % (24-48) L Monocytes (%) (Auto) 8 % (0-9) Eosinophils (%) (Auto) 5 % (0-3) H Basophils (%) (Auto) 1 % (0-3) Neutrophils # (Auto) 3.1 x10^3uL (1.8-7.7) Lymphocytes # (Auto) 1.1 x10^3/uL (1.0-4.8) Monocytes # (Auto) 0.4 x10^3/uL (0.0-1.1) Eosinophils # (Auto) 0.3 x10^3/uL (0.0-0.7) Basophils # (Auto) 0.0 x10^3/uL (0.0-0.2) Sodium Level 140 mmol/L (136-145) Potassium Level 4.2 mmol/L (3.5-5.1) Chloride Level 104 mmol/L (98-107) Carbon Dioxide Level 27 mmol/L (21-32) Anion Gap 9 (6-14) Blood Urea Nitrogen 12 mg/dL (7-20) Creatinine 0.7 mg/dL (0.6-1.0) Estimated GFR (Cockcroft-Gault) 83.0 BUN/Creatinine Ratio 17 (6-20) Glucose Level 102 mg/dL (70-99) H Calcium Level 9.5 mg/dL (8.5-10.1) Total Bilirubin 0.3 mg/dL (0.2-1.0) Aspartate Amino Transferase (AST) 31 U/L (15-37) Alanine Aminotransferase (ALT) 44 U/L (14-59) Alkaline Phosphatase 59 U/L (46-116) Total Protein 6.6 g/dL (6.4-8.2) Albumin 3.0 g/dL (3.4-5.0) L Albumin/Globulin Ratio 0.8 (1.0-1.7) L Current Medications: I have reviewed the current psychotropics carefully including drug interactions. Risk benefit ratio favors no change other than as noted in my dictated progress note. Diagnosis: Problems: (1) Anxiety disorder (2) Mild cognitive disorder (3) Impulse control disorder (4) Major depressive disorder with psychotic features (5) Major depressive disorder in partial remission AMBER SWAIN MD Apr 04, 2019 22:41
--- NOTE | 2019-04-04 23:09 | PN ---
DATE: 04/03/2019 This late entry 04/03/2019 covers the elements not covered in my initial note. SUBJECTIVE: I met with the patient at length in her room. The patient slept 6 hours previous night. The patient remains hyperverbal, intrusive, attention-seeking, but redirectable. REVIEW OF SYSTEMS: No CV, , pulmonary, eye system symptoms on review. MENTAL STATUS EXAM: Reasonably oriented. Speech coherent, rapid at times. Abstraction fair, computation impaired, language function intact, attention span short. Mood and affect is improved. LABORATORY DATA: Reviewed. IMPRESSION: Unchanged from initial note. PLAN: No change from initial note. MAN Daren SWAIN MD DR: REY/nabor JOB#: [id number] / [id number]
--- NOTE | 2019-04-05 01:10 | NUR ---
Nursing: Pt reports feeling anxious this evening. Demanding with meds and cares, but able to redirect. Cooperative with shower this evening, completed with min assist. Took meds whole, tolerated well.
[2019-04-05 05:53] VITALS: BP 142/79
[2019-04-05] MEDS: ASPIRIN ENTERIC COATED 81 MG TABLET.DR. PO SCH (07:41)
[2019-04-05] MEDS: amLODIPine BESYLATE 10 MG TABLET PO SCH (07:41)
[2019-04-05] MEDS: LACTOBACILLUS RHAMNOSUS GG 1 CAPSULE. PO SCH ×2 (07:41→19:16)
[2019-04-05] MEDS: VENLAFAXINE 50 MG TABLET. PO SCH ×3 (07:41→19:17)
[2019-04-05] MEDS: FLUTICASONE 50MCG/NASAL SPRAY 16GM BOTTLE. NS SCH (07:42)
[2019-04-05] MEDS: FAMOTIDINE 20 MG TABLET PO SCH (07:42)
[2019-04-05] MEDS: ACETAMINOPHEN 325 MG TABLET PO PRN ×2 (08:40→21:39)
[2019-04-05 16:20] VITALS: BP 152/74
[2019-04-05] MEDS: QUEtiapine 25 MG TABLET. PO SCH ×2 (17:27→19:16)
--- NOTE | 2019-04-05 18:15 | NUR ---
Patient was disorganized, restless, hyperverbal, and social with other patients this morning. She was compliant with medications and assessment. She c/o knee pain and prn medication was provided per eMAR. She was social and interactive with other patients, and participating in group activities. PAtient was agitated for a short period after breakfast r/t male patients that wandered into her room, but she was redirected by staff. Will continue to monitor.
[2019-04-05] MEDS: ATORVASTATIN CALCIUM 20 MG TABLET PO SCH (19:17)
--- NOTE | 2019-04-05 20:36 | PN ---
DATE: 04/04/2019 PSYCHIATRIC PROGRESS NOTE. This is a late entry of 04/04/2019, covers the elements not covered in my initial note. SUBJECTIVE: I met with the patient on the evening of 04/04/2019. The patient slept 7-1/2 hours previous night. Per nursing report, the patient remains a little anxious and hyperverbal, but overall better. She did receive some Tylenol and Zyprexa previous evening due to her increased anxiety, mood lability and also had some pain, received some BenGay and was better after this. REVIEW OF SYSTEMS: No CV, , pulmonary, eye, ENT system symptoms on review. Reliability fair. MENTAL STATUS EXAM: Reasonably oriented. Speech is coherent, somewhat pressured at times. Abstraction fair, computation impaired, language function intact, attention span short. Mood and affect is improved. As I met with her individually, she talked at length about her visiting in the evening and one of the other patients took up his time and how she confronted this other patient that she needs the time with her as private time. She does get a little anxious about circumstances. LABORATORY DATA: Reviewed. IMPRESSION: Major depressive disorder with psychotic features; anxiety disorder, unspecified. Rest unchanged. PLAN: Continue Effexor and Seroquel at current dosage together with Zyprexa p.r.n. Adjust further as clinically indicated. MAN Daren SWAIN MD DR: REY/nabor JOB#: [id number] / [id number]
[2019-04-05] MEDS: METHYL SALICYLATE/MENTHOL TOPICAL OINTMENT 29GM TUBE. TP PRN (21:10)
--- NOTE | 2019-04-05 22:14 | PDOC ---
Exam Note: Gabe Note: Please also refer to the separate dictated note~for this date of service dictated separately.~Patient seen individually. Discussed the patient with Nursing staff reviewed the chart.~Reviewed interim history and current functioning. Reviewed vital signs,~Labs/ Radiology~and current medications noted below. Continue current treatment with the changes noted in the dictated addendum note Assessment: Vital Signs/I&O: Vital Signs Date Time Temp Pulse Resp B/P (MAP) Pulse Ox O2 Delivery O2 Flow Rate FiO2 04/05/19 16:20 98.0 104 18 152/74 (100) 98 04/04/19 06:01 Room Air I & O 04/04/19 04/04/19 04/05/19 15:00 23:00 07:00 Intake Total 600 ml 240 ml 120 ml Balance 600 ml 240 ml 120 ml Current Medications: I have reviewed the current psychotropics carefully including drug interactions. Risk benefit ratio favors no change other than as noted in my dictated progress note. Diagnosis: Problems: (1) Anxiety disorder (2) Mild cognitive disorder (3) Impulse control disorder (4) Major depressive disorder with psychotic features (5) Major depressive disorder in partial remission AMBER SWAIN MD Apr 05, 2019 22:14
--- NOTE | 2019-04-05 22:27 | NUR ---
Nursing Note: Assumed care of pt. this evening, she was sitting out in the day room. She has been calm, pleasant, intrusive at times, and cooperative. She has been compliant with taking her HS meds whole this evening. She voice c/o bilateral knee pain, administered PRN meds per NOV. No agitation or aggression noted at this time.
[2019-04-06 06:09] VITALS: BP 170/84
[2019-04-06] MEDS: LACTOBACILLUS RHAMNOSUS GG 1 CAPSULE. PO SCH ×2 (08:34→19:21)
[2019-04-06] MEDS: FAMOTIDINE 20 MG TABLET PO SCH (08:34)
[2019-04-06] MEDS: ASPIRIN ENTERIC COATED 81 MG TABLET.DR. PO SCH (08:34)
[2019-04-06] MEDS: amLODIPine BESYLATE 10 MG TABLET PO SCH (08:34)
[2019-04-06] MEDS: VENLAFAXINE 50 MG TABLET. PO SCH ×2 (08:34→20:46)
[2019-04-06] MEDS: FLUTICASONE 50MCG/NASAL SPRAY 16GM BOTTLE. NS SCH (08:36)
[2019-04-06] MEDS: CHOLECALCIFEROL (VITAMIN D3) 50,000 UNIT CAPSULE PO SCH (08:36)
--- NOTE | 2019-04-06 09:20 | NUR ---
WEEKLY ACTIVITY THERAPY NOTE Date of Admission: 03/29/2019 Date of AT Assessment: 03/31/2019 Goal aimed: to increase stress management skills and leisure awareness Initial Goal: Pt. will engage in at least one Activity Therapy group per day. Weekly progress towards goal: achieved Group participation level: moderate to full Weekly highlights: enjoys many activities, supportive of other peers- social awareness Behaviors observed: aware that she can be talkative and interrupts others, asked for help and reminders with that. Remembers and greets staff by name, has difficulty sitting still for long and concentrating with distractions. Plan: no change to goal Beneficial adaptations: invitation to groups
--- NOTE | 2019-04-06 10:59 | NUR ---
WEEKLY NOTE: Lashawn has been eating 75-100% of meals, sleeping an average of 6 hours a night. She is attending meals and is involved in groups. She is social with other peers and staff. Lashawn feels she is improving and recognizes her tendency to talk a lot and tries to catch herself. Lashawn and Beny participated in treatment team meeting today. Lashawn will d/c home on 04/11/19. She would like a referral to do out patient rehab at [facility]. Lashawn will follow up with her counselor Dandre Ruiz and is agreeable to have psychiatry services with Dr. Rene Irvin located in [place]. Will continue with d/c planning and arrangements.
--- NOTE | 2019-04-06 15:15 | NUR ---
Lashawn will discharge home on 04/11/19 at 10am via spouse transport. Lashawn has a follow up appointment scheduled at her PCP office on 04/25/19 at 11am. Lashawn has an appointment scheduled with Dr. Rene Irvin, psychiatrist, on 07/20/19 at 10:45am, she will be a new patient. Left message at Dandre Ruiz (psychologist) office with request for return phone call to schedule follow up appointment, awaiting return call. Awaiting physician order for out patient PT in order to complete referral to [facility] per family preference.
--- NOTE | 2019-04-06 16:04 | NUR ---
Lashawn has a follow up appointment scheduled with her psychologist, Dr. Ruiz, on 04/13/19 at 5pm.
[2019-04-06 16:16] VITALS: BP 138/75
[2019-04-06] MEDS: QUEtiapine 25 MG TABLET. PO SCH ×2 (17:31→19:21)
--- NOTE | 2019-04-06 18:44 | NUR ---
Patient was disorganized, restless, hyperverbal, and social with other patients this morning. She was compliant with medications and assessment. She c/o knee pain this morning, prn medication was provided per eMAR. She was social and interactive with other patients, and participating in group activities. PAtient was more attention seeking after dinner, stating that she had a cold because she had her shower at night, wanting the heat set to 65* and the AC set to 78* so the fan would not come on, and asking for wipes and toilet paper both of which were in her bathroom. Will continue to monitor and report to oncoming shift.
[2019-04-06] MEDS: ATORVASTATIN CALCIUM 20 MG TABLET PO SCH (19:22)
[2019-04-06] MEDS: ACETAMINOPHEN 325 MG TABLET PO PRN (20:45)
--- NOTE | 2019-04-06 22:15 | NUR ---
Nursing Note: Assumed care of pt. this evening, she was in the day room. She has been calm, pleasant, and cooperative. She has been compliant with taking her HS meds whole this evening. She voice c/o bilateral knee pain, PRN medications given per MAR. No behaviors noted at this time.
--- NOTE | 2019-04-06 22:18 | PDOC ---
Exam Note: Gabe Note: Please also refer to the separate dictated note~for this date of service dictated separately.~Patient seen individually. Discussed the patient with Nursing staff reviewed the chart.~Reviewed interim history and current functioning. Reviewed vital signs,~Labs/ Radiology~and current medications noted below. Continue current treatment with the changes noted in the dictated addendum note Assessment: Vital Signs/I&O: Vital Signs Date Time Temp Pulse Resp B/P (MAP) Pulse Ox O2 Delivery O2 Flow Rate FiO2 04/06/19 16:16 97.3 81 22 138/75 (96) 94 Room Air I & O 04/05/19 04/05/19 04/06/19 14:59 22:59 06:59 Intake Total 655 ml 295 ml 240 ml Balance 655 ml 295 ml 240 ml Current Medications: Meds: Current Medications Medications (Trade) Dose Ordered Sig/Mickey Route PRN Reason Start Time Stop Time Status Last Admin Dose Admin Quetiapine Fumarate (SEROquel) 37.5 mg BID@1700,2100 PO 04/06/19 17:00 04/06/19 19:21 Venlafaxine HCl (Effexor) 50 mg BID PO 04/06/19 21:00 04/06/19 20:46 I have reviewed the current psychotropics carefully including drug interactions. Risk benefit ratio favors no change other than as noted in my dictated progress note. Diagnosis: Problems: (1) Anxiety disorder (2) Mild cognitive disorder (3) Impulse control disorder (4) Major depressive disorder with psychotic features (5) Major depressive disorder in partial remission AMBER SWAIN MD Apr 06, 2019 22:18
[2019-04-07 05:43] VITALS: BP 158/73
[2019-04-07] MEDS: VENLAFAXINE 50 MG TABLET. PO SCH ×2 (08:09→19:20)
[2019-04-07] MEDS: LACTOBACILLUS RHAMNOSUS GG 1 CAPSULE. PO SCH ×2 (08:09→19:19)
[2019-04-07] MEDS: FAMOTIDINE 20 MG TABLET PO SCH (08:10)
[2019-04-07] MEDS: amLODIPine BESYLATE 10 MG TABLET PO SCH (08:10)
[2019-04-07] MEDS: FLUTICASONE 50MCG/NASAL SPRAY 16GM BOTTLE. NS SCH (08:11)
[2019-04-07] MEDS: ASPIRIN ENTERIC COATED 81 MG TABLET.DR. PO SCH (08:11)
--- NOTE | 2019-04-07 09:58 | NUR ---
[facility] Social Work Discharge Planning Form Patient Name LUDIN VILLELA Admit Date: 03/29/2019 DISCHARGE PLAN Discharge Destination: Home with spouse Care Assessment: n/a Transportation: Beny Villela, spouse, will transport on 04/11/19 at 10-10:30am. Special Instructions/Notes: Lashawn has an appointment scheduled with Dr. Dandre Ruiz, psychologist, on 04/13/[address] Ruiz's contact number is [phone] Lashawn has an appointment scheduled with Dr. Rene Irvin, psychiatrist, on 07/20/2019 at 10:45am. Dr. Irvin's office is located at [address] [place] [address]. Irvin's contact number is [phone]. Lashawn has an appointment scheduled at PCP Dr. Arcos's office on 04/25/2019 at 11am. A referral has been completed to [facility] for Lashawn to do out patient physical therapy. [facility] is located at [address] [address]. The rehab contact number is [phone]. The rehab will contact Lashawn to schedule an appointment. DISCHARGE TO HOME: Address: [address] [place] [address] Responsible Democrat: Beny Villela, spouse/guardian Pharmacy: [facility], located at [address] [place] [address] in [facility], contact number of [phone]. Psychiatrist/Mental Health Follow Up: Dr. Rene Irvin, , (fax) Primary Care Follow Up: Dr. Jeremy Arcos, , (fax)
[2019-04-07] MEDS: ACETAMINOPHEN 325 MG TABLET PO PRN ×2 (10:14→21:27)
--- NOTE | 2019-04-07 12:42 | NUR ---
NURSING NOTE PT WAS IN DINNING ROOM THIS AM UPON ASSESSMENT AND MEDICATION ADMINISTRATION. PT COMPLIANT WITH MEDS THIS AM. PT A&O X4 TODAY. PT REQUEST TYLENOL THIS AM. PT PARTICIPATED IN GROUP TODAY, WAS INTERACTIVE WITH STAFF AND OTHER PATIENTS. PT WAS CALM, COOPERATIVE, AND PLEASANT WITH STAFF. PT DENIED SI IDEATION. NO OTHER BEHAVIORS NOTED. WILL CONTINUE TO MONITOR. SERVANDO PHILLIPS
--- NOTE | 2019-04-07 15:31 | NUR ---
Reviewed upcoming discharge plans with Lashawn. Wished Lashawn well as she prepares to transition home on 04/11/19. Telephone conversation with Beny (spouse/POA) and Delia (daughter) reviewing follow up appointments and discharge plans that are in place. Both Lashawn and her family expressed thankfulness for the care she has received while on the unit.
[2019-04-07 15:35] VITALS: BP 160/79
[2019-04-07] MEDS: QUEtiapine 25 MG TABLET. PO SCH ×2 (16:46→19:19)
[2019-04-07] MEDS: ATORVASTATIN CALCIUM 20 MG TABLET PO SCH (19:19)
[2019-04-07] MEDS: METHYL SALICYLATE/MENTHOL TOPICAL OINTMENT 29GM TUBE. TP PRN (21:27)
--- NOTE | 2019-04-07 22:09 | NUR ---
Pt sitting quietly in her room at shift change. Pt calm, pleasant but can be intrusive with other's conversations and cares, can also be needy and attention seeking at times. Pt cooperative with assessment and compliant with medications administered whole. PRN Tylenol and analgesic balm administered for c/o bilateral knee pain and PRN Zydis administered for anxiety.
--- NOTE | 2019-04-07 22:21 | PN ---
DATE: 04/05/2019 PSYCHIATRIC PROGRESS NOTE This late entry, 04/05/2019, covers elements not covered in my initial note. SUBJECTIVE: I met with the patient in the evening. The patient slept 6 hours previous night. Previous night, she was demanding, attention seeking, and during the day on 04/05, she was upset regarding the other demented patients wandering into her room. She is less hyperverbal attending groups. REVIEW OF SYSTEMS: Ambulation impaired with walker. No CV, , pulmonary, eye system symptoms on review. MENTAL STATUS EXAM: Reasonably oriented. Speech is coherent, at times pressured, less so than before. Abstraction fair, computation impaired, language function intact, attention span short. Mood and affect remain somewhat anxious, labile. LABORATORY DATA: Reviewed. IMPRESSION: Unchanged from initial note. PLAN: No change from initial note. MAN Daren SWAIN MD DR: REY/nabor JOB#: [id number] / [id number]
--- NOTE | 2019-04-07 22:27 | PN ---
DATE: 04/06/2019 PSYCHIATRIC PROGRESS NOTE This is a late entry 04/06/2019, covers the elements not covered in my initial note. SUBJECTIVE: I met with the patient in the evening. The patient was also staffed had a lengthy treatment team meeting with the entire team in the morning of 04/06/2019 and her attended the conference together with the patient. We had a lengthy discussion about the patient's history, diagnosis of depression versus bipolar disorder; anxiety disorder and treatment plan, psychotropics, discharge, aftercare plans. REVIEW OF SYSTEMS: Positive for some impaired ambulation with walker. No CV, , pulmonary, eye system symptoms on review. MENTAL STATUS EXAM: Oriented to herself and situation. Speech is coherent, rapid at times. Abstraction fair, computation impaired, language function intact, attention span short. Mood and affect remain somewhat anxious, labile at times, grandiose. Later in the evening, I had got a message from the patient's daughter, wanting to know if they should pursue permanent guardianship on the patient. I had left a detailed message back for the daughter indicating that she is on psychotropics for her mood stabilization and this should be given 10-12 weeks and at that time, a determination would have to be made on the capacity to make decisions. She may need psychological testing at that stage for clarification of this because otherwise she is reasonably oriented. REVIEW OF SYSTEMS: Ambulation impaired with walker. No CV, , pulmonary, eye system symptoms on review. MENTAL STATUS EXAM: Oriented reasonably. Speech coherent, less pressured. Abstraction fair, computation impaired, language function intact, attention span short. Mood and affect remain somewhat grandiose, labile, anxious, but better than before. LABORATORY DATA: Reviewed. IMPRESSION: Bipolar disorder, mixed; anxiety disorder, history of major depressive disorder with psychotic features, mild cognitive impairment. PLAN: For now, she is on Effexor 50 mg t.i.d. This could be increasing her manic symptoms, we will reduce to 50 mg b.i.d., increase Seroquel from 25 mg b.i.d. to 37.5 mg b.i.d. Continue Zyprexa. Consider Depakote as a mood stabilizer. Addressed all this at length with the and the patient at the treatment team meeting. MAN Daren SWAIN MD DR: REY/nabor JOB#: [id number] / [id number]
--- NOTE | 2019-04-07 22:33 | PDOC ---
Exam Note: Gabe Note: Please also refer to the separate dictated note~for this date of service dictated separately.~Patient seen individually. Discussed the patient with Nursing staff reviewed the chart.~Reviewed interim history and current functioning. Reviewed vital signs,~Labs/ Radiology~and current medications noted below. Continue current treatment with the changes noted in the dictated addendum note Assessment: Vital Signs/I&O: Vital Signs Date Time Temp Pulse Resp B/P (MAP) Pulse Ox O2 Delivery O2 Flow Rate FiO2 04/07/19 15:35 98.1 89 18 160/79 (106) 97 04/07/19 05:43 Room Air I & O 04/06/19 04/06/19 04/07/19 14:59 22:59 06:59 Intake Total 720 ml 480 ml 120 ml Balance 720 ml 480 ml 120 ml Current Medications: I have reviewed the current psychotropics carefully including drug interactions. Risk benefit ratio favors no change other than as noted in my dictated progress note. Diagnosis: Problems: (1) Anxiety disorder (2) Mild cognitive disorder (3) Impulse control disorder (4) Major depressive disorder with psychotic features (5) Major depressive disorder in partial remission AMBER SWAIN MD Apr 07, 2019 22:33
[2019-04-08 05:28] VITALS: BP 152/76
[2019-04-08] MEDS: VENLAFAXINE 50 MG TABLET. PO SCH ×2 (07:34→21:38)
[2019-04-08] MEDS: FLUTICASONE 50MCG/NASAL SPRAY 16GM BOTTLE. NS SCH (07:34)
[2019-04-08] MEDS: LACTOBACILLUS RHAMNOSUS GG 1 CAPSULE. PO SCH ×2 (07:34→21:39)
[2019-04-08] MEDS: ASPIRIN ENTERIC COATED 81 MG TABLET.DR. PO SCH (07:34)
[2019-04-08] MEDS: FAMOTIDINE 20 MG TABLET PO SCH (07:35)
[2019-04-08] MEDS: amLODIPine BESYLATE 10 MG TABLET PO SCH (07:35)
[2019-04-08] MEDS: ACETAMINOPHEN 325 MG TABLET PO PRN ×2 (10:00→21:40)
--- NOTE | 2019-04-08 10:28 | NUR ---
Patient was in the dining room during morning rounding, took medications, allowed for morning assessment. Patient did take a shower this morning mentioned being in pain shortly after. Patient rated this a 5/10. PRN Tylenol given @1000. Patient is currently in the dayroom visiting with other staff members and patient's. No agitation noted, will continue to monitor.
[2019-04-08 16:20] VITALS: BP 150/69
[2019-04-08] MEDS: QUEtiapine 25 MG TABLET. PO SCH ×2 (17:04→21:39)
[2019-04-08] MEDS: ATORVASTATIN CALCIUM 20 MG TABLET PO SCH (21:38)
[2019-04-08] MEDS: METHYL SALICYLATE/MENTHOL TOPICAL OINTMENT 29GM TUBE. TP PRN (21:41)
--- NOTE | 2019-04-08 23:00 | PDOC ---
Exam Note: Gabe Note: Please also refer to the separate dictated note~for this date of service dictated separately.~Patient seen individually. Discussed the patient with Nursing staff reviewed the chart.~Reviewed interim history and current functioning. Reviewed vital signs,~Labs/ Radiology~and current medications noted below. Continue current treatment with the changes noted in the dictated addendum note Assessment: Vital Signs/I&O: Vital Signs Date Time Temp Pulse Resp B/P (MAP) Pulse Ox O2 Delivery O2 Flow Rate FiO2 04/08/19 16:20 98.4 87 20 150/69 (96) 96 04/07/19 05:43 Room Air I & O 04/07/19 04/07/19 04/08/19 15:00 23:00 07:00 Intake Total 960 ml 480 ml 240 ml Balance 960 ml 480 ml 240 ml Current Medications: I have reviewed the current psychotropics carefully including drug interactions. Risk benefit ratio favors no change other than as noted in my dictated progress note. Diagnosis: Problems: (1) Anxiety disorder (2) Mild cognitive disorder (3) Impulse control disorder (4) Major depressive disorder with psychotic features (5) Major depressive disorder in partial remission AMBER SWAIN MD Apr 08, 2019 23:00
--- NOTE | 2019-04-08 23:12 | NUR ---
Pt sitting quietly in her room at shift change. Pt calm, interactive and social with staff, appropriate. Pt did voice some concerns regarding the fact that someone had flattened her bed out today and she would need help to readjust it. This nurse assisted pt with the positioning of her bed to which pt was quite particular with and needed the bed to be readjusted several times before she was satisfied. Pt cooperative with assessment and compliant with medications administered whole. PRN Tylenol and PRN analgesic balm administered as ordered for pain and PRN Zydis administered as ordered for increased anxiety.
[2019-04-09 05:45] VITALS: BP 152/82
[2019-04-09] MEDS: VENLAFAXINE 50 MG TABLET. PO SCH ×2 (07:39→20:38)
[2019-04-09] MEDS: LACTOBACILLUS RHAMNOSUS GG 1 CAPSULE. PO SCH ×2 (07:39→20:38)
[2019-04-09] MEDS: ASPIRIN ENTERIC COATED 81 MG TABLET.DR. PO SCH (07:39)
[2019-04-09] MEDS: FLUTICASONE 50MCG/NASAL SPRAY 16GM BOTTLE. NS SCH (07:39)
[2019-04-09] MEDS: amLODIPine BESYLATE 10 MG TABLET PO SCH (07:40)
[2019-04-09] MEDS: FAMOTIDINE 20 MG TABLET PO SCH (07:40)
[2019-04-09] MEDS: ACETAMINOPHEN 325 MG TABLET PO PRN ×2 (08:17→21:35)
--- NOTE | 2019-04-09 09:48 | NUR ---
Patient was in the dining room for breakfast during rounding, took medications, Allowed for morning assessment. Patient did mention pain this morning, her knees and low back are bothering her. PRN Tylenol given @0817. Patient rated this an 7/10. Patient is currently watching oriental orthodox in the dayroom. Pt has been a little worried about other patient's and what they are doing/talking to. No agitation noted, will continue to monitor.
[2019-04-09] MEDS: QUEtiapine 25 MG TABLET. PO SCH ×2 (16:50→20:38)
[2019-04-09 17:20] VITALS: BP 149/79
[2019-04-09] MEDS: ATORVASTATIN CALCIUM 20 MG TABLET PO SCH (20:38)
[2019-04-09] MEDS: METHYL SALICYLATE/MENTHOL TOPICAL OINTMENT 29GM TUBE. TP PRN (21:35)
--- NOTE | 2019-04-09 21:36 | NUR ---
During assessment, patient reports pain 7/10 in knees, lower legs, shoulders and down spinal column. Nida has a history of osteoarthritis and states this is not a new source of pain. Gave patient PRN tylenol 650mg and applied PRN analgesic rub to above stated areas, both per doctor order. Patient indicated that she is going to bed at this time.
--- NOTE | 2019-04-09 22:08 | PDOC ---
Exam Note: Gabe Note: Please also refer to the separate dictated note~for this date of service dictated separately.~Patient seen individually. Discussed the patient with Nursing staff reviewed the chart.~Reviewed interim history and current functioning. Reviewed vital signs,~Labs/ Radiology~and current medications noted below. Continue current treatment with the changes noted in the dictated addendum note Assessment: Vital Signs/I&O: Vital Signs Date Time Temp Pulse Resp B/P (MAP) Pulse Ox O2 Delivery O2 Flow Rate FiO2 04/09/19 17:20 97.2 93 20 149/79 (102) 95 04/09/19 05:45 Room Air I & O 04/08/19 04/08/19 04/09/19 15:00 23:00 07:00 Intake Total 1200 ml 360 ml 240 ml Balance 1200 ml 360 ml 240 ml Current Medications: Meds: Current Medications Medications (Trade) Dose Ordered Sig/Mickey Route PRN Reason Start Time Stop Time Status Last Admin Dose Admin Quetiapine Fumarate (SEROquel) 50 mg QHS PO 04/09/19 21:00 04/09/19 20:38 I have reviewed the current psychotropics carefully including drug interactions. Risk benefit ratio favors no change other than as noted in my dictated progress note. Diagnosis: Problems: (1) Anxiety disorder (2) Mild cognitive disorder (3) Impulse control disorder (4) Major depressive disorder with psychotic features (5) Major depressive disorder in partial remission AMBER SWAIN MD Apr 09, 2019 22:08
--- NOTE | 2019-04-09 22:30 | NUR ---
Patient sitting in chair in her room this evening. She knows everyone on the units by sight AND knows their names. She was not intrusive tonight and seemed less hyper-verbal than in previous interactions with this nurse on prior days. Patient stated she was tired tonight and her knees/legs hurt. Patient is pleasant and interactive, compliant with medications taken whole. Dr. Peterson increased patients Seroquel to 50mg HS, which started with tonights dose.
--- NOTE | 2019-04-09 23:36 | PN ---
DATE: 04/07/2019 PSYCHIATRIC PROGRESS NOTE This late entry 04/07/2019 covers elements not covered in my initial note. SUBJECTIVE: I met with the patient at length the evening of 04/07/2019. The patient has been polite, cooperative, not aggressive. She gets agitated if one of the other demented patients walks into her room. She slept 7 hours previous night. REVIEW OF SYSTEMS: Ambulation impaired with walker. No CV, , pulmonary, eyes, ENT system symptoms on review. MENTAL STATUS EXAM: Reasonably oriented. Speech coherent, still pressured, but improved. Abstraction fair, computation impaired, language function intact, attention span short. Mood and affect, lability is improved. LABORATORY DATA: Reviewed. IMPRESSION: Unchanged from initial note. PLAN: Effexor has been reduced to 50 mg b.i.d., Seroquel increased to 37.5 mg b.i.d. Continue Zyprexa p.r.n. Consider Depakote as a mood stabilizer. AMBER SWAIN MD DR: REY/nabor JOB#: [id number] / [id number]
--- NOTE | 2019-04-09 23:42 | PN ---
DATE: 04/08/2019 PSYCHIATRIC PROGRESS NOTE This late entry, 04/08, covers elements not covered in my initial note. SUBJECTIVE: I met with the patient evening of 04/08. The patient slept 7-3/4 hours previous night. She remains somewhat hyperverbal, needy, per nursing report compliant with medications. Her visited her. She is at times intrusive, but redirects. REVIEW OF SYSTEMS: No CV, , pulmonary, eye, ENT system symptoms on review. I met with her at length in her room. MENTAL STATUS EXAM: Reasonably oriented. Speech coherent, somewhat pressured, less so than before. Abstraction fair, computation impaired, language function intact. Mood and affect, lability despite the above is improved. LABORATORY DATA: Reviewed. IMPRESSION: Unchanged from initial note. PLAN: No change from initial note. MAN Daren SWAIN MD DR: REY/nabor JOB#: [id number] / [id number]
[2019-04-09] MEDS ORDERED: VENL37.56 PO (23:53)
[2019-04-09] MEDS ORDERED: VENL50TA PO (23:57)
[2019-04-09] MEDS ORDERED: QUET25TA5 PO (23:59)
[2019-04-09] MEDS ORDERED: QUET50TA5 PO (23:59)
[2019-04-10] MEDS ORDERED: ACET325T9 PO (00:02)
[2019-04-10] MEDS ORDERED: CHOL500050 PO (00:04)
[2019-04-10] MEDS ORDERED: FLUT9.9S NS (00:06)
[2019-04-10] MEDS ORDERED: LACT1CAP21 PO (00:09)
[2019-04-10] MEDS ORDERED: MAG355OR12 PO (00:10)
[2019-04-10] MEDS ORDERED: MAGN2400 PO (00:11)
[2019-04-10] MEDS ORDERED: METH29OI TP (00:12)
[2019-04-10 05:58] VITALS: BP 161/79
[2019-04-10 07:19] LABS: BASO % 1 % (0-3); EOS # 0.3 x10^3/uL (0.0-0.7); EOS % 6 % (0-3); HEMATOCRIT 29.5 % (36.0-47.0); HEMOGLOBIN 9.4 g/dL (12.0-15.5); LYMPH # 1.1 x10^3/uL (1.0-4.8); LYMPH % 25 % (24-48); MEAN CORPUSCULAR HEMOGLOBIN 28 pg (25-35); MEAN CORPUSCULAR HGB CONC 32 g/dL (31-37); MEAN CORPUSCULAR VOLUME 88 fL (79-100); MONO # 0.3 x10^3/uL (0.0-1.1); MONO % 8 % (0-9); NEUT # 2.6 x10^3uL (1.8-7.7); NEUT % 60 % (31-73); PLATELET COUNT 284 x10^3/uL (140-400); RED BLOOD COUNT 3.34 x10^6/uL (3.50-5.40); RED CELL DISTRIBUTION WIDTH 16.4 % (11.5-14.5); WHITE BLOOD COUNT 4.4 x10^3/uL (4.0-11.0)
[2019-04-10 07:34] LABS: ALBUMIN 2.7 g/dL (3.4-5.0); ALBUMIN/GLOBULIN RATIO 0.8 (1.0-1.7); CALCIUM 8.8 mg/dL (8.5-10.1); CREATININE 0.7 mg/dL (0.6-1.0); POTASSIUM 3.9 mmol/L (3.5-5.1); TOTAL BILIRUBIN 0.3 mg/dL (0.2-1.0); TOTAL PROTEIN 6.1 g/dL (6.4-8.2)
[2019-04-10] MEDS: LACTOBACILLUS RHAMNOSUS GG 1 CAPSULE. PO SCH ×2 (07:35→19:01)
[2019-04-10] MEDS: VENLAFAXINE 50 MG TABLET. PO SCH ×2 (07:35→19:01)
[2019-04-10] MEDS: FLUTICASONE 50MCG/NASAL SPRAY 16GM BOTTLE. NS SCH (07:35)
[2019-04-10] MEDS: ASPIRIN ENTERIC COATED 81 MG TABLET.DR. PO SCH (07:35)
[2019-04-10] MEDS: FAMOTIDINE 20 MG TABLET PO SCH (07:36)
[2019-04-10] MEDS: amLODIPine BESYLATE 10 MG TABLET PO SCH (07:36)
[2019-04-10] MEDS: QUEtiapine 25 MG TABLET. PO SCH ×2 (07:39→19:01)
[2019-04-10] MEDS: ACETAMINOPHEN 325 MG TABLET PO PRN ×2 (09:06→19:59)
--- NOTE | 2019-04-10 10:26 | NUR ---
Patient was in the dining room finishing up breakfast, took medications, allowed for morning assessment. Patient mentioned being in some pain, rated this about a 7/10. PRN tylenol given @0906. Patient has been busy morning, participated in group this morning. No agitation noted, will continue to monitor.
--- NOTE | 2019-04-10 13:40 | NUR ---
BARI returned call to pt Ted who wanted to double check on making sure pt medications are called in [facility]. He would prefer that they are called in tonight versus tomorrow morning, so that the pharmacy can make sure they have everything and he can pick them up in a timely manner, versus potentially having to wait to get pt meds on Wednesday. BARI will plan to inform nursing of this request. Pt and SW went over pt appts as noted and informed him that he will also get this copy for his records. Pt will continue to plan on picking pt up between 10 and 1030. SW encouraged pt to call SW if he had any further questions prior to tomorrow.
--- NOTE | 2019-04-10 15:24 | NUR ---
Please see 1:1 intervention note about practicing focus activities. Addendum: 04/10/19 at 1525 by BRIAN LEDBETTER ACT Amended: Links added.
[2019-04-10 15:59] VITALS: BP 167/82
[2019-04-10] MEDS: ATORVASTATIN CALCIUM 20 MG TABLET PO SCH (19:01)
--- NOTE | 2019-04-10 20:15 | PN ---
DATE: 04/09/2019 PSYCHIATRIC PROGRESS NOTE This late entry of 04/09/2019 covers the elements not covered in my initial note. SUBJECTIVE: I met with the patient in the evening of 04/09/2019. The patient slept 6-1/4 hours previous night. She remains somewhat hyperverbal, intrusive, but redirects. Gets into people's business per nursing report. I sat with her in her room at length and addressed all of this. She states her ability to control this is much better. REVIEW OF SYSTEMS: No CV, , pulmonary, eye, ENT system symptoms on review. MENTAL STATUS EXAM: Reasonably oriented. Speech coherent, a little pressured, less so than before. Abstraction fair, computation impaired, language function intact. Mood and affect still somewhat labile. LABORATORY DATA: Reviewed. IMPRESSION: Unchanged from initial note. PLAN: No change from initial note, but we will increase the 2100 Seroquel from 37.5 mg to 50 mg. Rest unchanged for now. AMBER SWAIN MD DR: REY/nabor JOB#: [id number] / [id number]
--- NOTE | 2019-04-10 20:56 | NUR ---
Nursing Note: Assumed care of pt. this evening, she was walking around in her room. She has been calm, pleasant and cooperative. She has been compliant with taking her HS meds whole this evening. PRN meds given per NOV due to bilateral knee pain. No behaviors noted at this time.
--- NOTE | 2019-04-10 22:28 | PDOC ---
Exam Note: Gabe Note: Please also refer to the separate dictated note~for this date of service dictated separately.~Patient seen individually. Discussed the patient with Nursing staff reviewed the chart.~Reviewed interim history and current functioning. Reviewed vital signs,~Labs/ Radiology~and current medications noted below. Continue current treatment with the changes noted in the dictated addendum note Assessment: Vital Signs/I&O: Vital Signs Date Time Temp Pulse Resp B/P (MAP) Pulse Ox O2 Delivery O2 Flow Rate FiO2 04/10/19 15:59 97.4 93 20 167/82 (110) 98 04/09/19 05:45 Room Air I & O 04/09/19 04/09/19 04/10/19 14:59 22:59 06:59 Intake Total 360 ml 480 ml Balance 360 ml 480 ml Labs: Laboratory Tests Test 04/10/19 06:56 White Blood Count 4.4 x10^3/uL (4.0-11.0) Red Blood Count 3.34 x10^6/uL (3.50-5.40) L Hemoglobin 9.4 g/dL (12.0-15.5) L Hematocrit 29.5 % (36.0-47.0) L Mean Corpuscular Volume 88 fL (79-100) Mean Corpuscular Hemoglobin 28 pg (25-35) Mean Corpuscular Hemoglobin Concent 32 g/dL (31-37) Red Cell Distribution Width 16.4 % (11.5-14.5) H Platelet Count 284 x10^3/uL (140-400) Neutrophils (%) (Auto) 60 % (31-73) Lymphocytes (%) (Auto) 25 % (24-48) Monocytes (%) (Auto) 8 % (0-9) Eosinophils (%) (Auto) 6 % (0-3) H Basophils (%) (Auto) 1 % (0-3) Neutrophils # (Auto) 2.6 x10^3uL (1.8-7.7) Lymphocytes # (Auto) 1.1 x10^3/uL (1.0-4.8) Monocytes # (Auto) 0.3 x10^3/uL (0.0-1.1) Eosinophils # (Auto) 0.3 x10^3/uL (0.0-0.7) Basophils # (Auto) 0.0 x10^3/uL (0.0-0.2) Sodium Level 140 mmol/L (136-145) Potassium Level 3.9 mmol/L (3.5-5.1) Chloride Level 107 mmol/L (98-107) Carbon Dioxide Level 26 mmol/L (21-32) Anion Gap 7 (6-14) Blood Urea Nitrogen 11 mg/dL (7-20) Creatinine 0.7 mg/dL (0.6-1.0) Estimated GFR (Cockcroft-Gault) 83.0 BUN/Creatinine Ratio 16 (6-20) Glucose Level 106 mg/dL (70-99) H Calcium Level 8.8 mg/dL (8.5-10.1) Total Bilirubin 0.3 mg/dL (0.2-1.0) Aspartate Amino Transferase (AST) 22 U/L (15-37) Alanine Aminotransferase (ALT) 29 U/L (14-59) Alkaline Phosphatase 59 U/L (46-116) Total Protein 6.1 g/dL (6.4-8.2) L Albumin 2.7 g/dL (3.4-5.0) L Albumin/Globulin Ratio 0.8 (1.0-1.7) L Current Medications: Meds: Current Medications Medications (Trade) Dose Ordered Sig/Mickey Route PRN Reason Start Time Stop Time Status Last Admin Dose Admin Quetiapine Fumarate (SEROquel) 37.5 mg DAILY PO 04/10/19 09:00 04/10/19 07:39 I have reviewed the current psychotropics carefully including drug interactions. Risk benefit ratio favors no change other than as noted in my dictated progress note. Diagnosis: Problems: (1) Anxiety disorder (2) Mild cognitive disorder (3) Impulse control disorder (4) Major depressive disorder with psychotic features (5) Major depressive disorder in partial remission AMBER SWAIN MD Apr 10, 2019 22:27
[2019-04-11 04:17] VITALS: BP 154/71
[2019-04-11 08:49] VITALS: BP 154/71
[2019-04-11] MEDS: LACTOBACILLUS RHAMNOSUS GG 1 CAPSULE. PO SCH (08:49)
[2019-04-11] MEDS: ASPIRIN ENTERIC COATED 81 MG TABLET.DR. PO SCH (08:49)
[2019-04-11] MEDS: amLODIPine BESYLATE 10 MG TABLET PO SCH (08:49)
[2019-04-11] MEDS: VENLAFAXINE 50 MG TABLET. PO SCH (08:49)
[2019-04-11] MEDS: QUEtiapine 25 MG TABLET. PO SCH (08:50)
[2019-04-11] MEDS: FAMOTIDINE 20 MG TABLET PO SCH (08:50)
[2019-04-11] MEDS: ACETAMINOPHEN 325 MG TABLET PO PRN (08:51)
[2019-04-11] MEDS: FLUTICASONE 50MCG/NASAL SPRAY 16GM BOTTLE. NS SCH (09:08)
--- NOTE | 2019-04-11 10:45 | NUR ---
Patient has had a busy morning, has been thanking all staff members for their care as well as going around to each patient and telling them good bye. Took medications, allowed morning assessment. Patient is discharging this morning, looking forward to it but is a little nervous. Patient mentioned she was in pain PRN tylenol given @0851. Will continue to monitor.
--- NOTE | 2019-04-11 10:48 | NUR ---
Transition Record was faxed to follow-up provider with the following elements: Reason for admission, procedures, tests, principal diagnosis, pending studies, patient instructions, 29/03 contact information for unit, phone number to obtain pending test results, plan for follow-up care, physician follow-up, advanced directive information, and medication list with dose, duration and instructions. This information was included in the following documents: History and physical, lab results, study results, progress notes, social work planning form, DC instruction form, patient visit summary, and medication reconciliation form. Date & time record faxed: 04/11/19 @0054 Record faxed to: Dr. Irvin's office, Dr. Arcos's office. Record discussed with/ report given to: Lorenzo
--- NOTE | 2019-04-11 12:51 | DS ---
DATE OF DISCHARGE: 04/11/2019 This note covers elements not covered in my initial note, 04/11/2019. REASON FOR ADMISSION: Please refer to the admission history for details. Briefly, the patient is a 68-year-old female who is referred to us from [facility] in [place] after she was medically stabilized there. She presented there from home and had been delusional with marked mood lability, appeared manic, verbally aggressive, at times depressed. Additionally, she was noted to be manipulative, anxious with suicidal ideation, but no plans. Her brother committed suicide 5 years ago in front of her and reportedly, she has struggled since. She had failed outpatient psychiatric interventions resulting in this referral. SIGNIFICANT FINDINGS AND CLINICAL COURSE: Following admission, the patient was seen daily individually by myself from a psychiatric standpoint, medical followup with Dr. Hamm. The patient appeared somewhat depressed, anxious, but very hyperverbal, intrusive, disruptive on the unit. Adjustments were made in her psychotropics and she seemed to respond to a combination of Effexor, which was reduced from 50 mg 3 times a day down to 50 mg twice a day consequent to her valerie. Seroquel was at 37.5 mg at 1700 and was increased to 50 mg at bedtime, Zyprexa was used p.r.n. Consideration was given to using Depakote as a mood stabilizer, but this was deferred to outpatient followup depending on how she does on the Seroquel. REVIEW OF SYSTEMS: Prior to discharge on 04/11/2019, ambulation impaired with walker. No CV, , pulmonary, eye, ENT system symptoms on review. MENTAL STATUS EXAM: The patient is reasonably oriented. Speech coherent, still somewhat pressured, better than before. Abstraction fair, computation impaired, language function intact, attention span short. Mood and affect remain somewhat anxious, labile, but improved. No suicidal or homicidal ideation prior to discharge. FINAL DIAGNOSES: Probable bipolar 1 disorder, mixed with psychotic features; history of major depressive disorder with psychotic features; anxiety disorder, unspecified; impulse control disorder. Rest unchanged from admission. DISCHARGE MEDICATIONS: Please refer to the MRAD. DISCHARGE INSTRUCTIONS: Outpatient psychiatric and medical followup as arranged closer to her home. Time for discharge day management greater than 30 minutes. MAN Daren SWAIN MD DR: REY/nabor JOB#: [id number] / [id number]
--- NOTE | 2019-04-11 18:33 | PDOC ---
Exam Note: Gabe Note: Please also refer to the separate dictated note~for this date of service dictated separately.~Patient seen individually. Discussed the patient with Nursing staff reviewed the chart.~Reviewed interim history and current functioning. Reviewed vital signs,~Labs/ Radiology~and current medications noted below. Continue current treatment with the changes noted in the dictated addendum note Assessment: Vital Signs/I&O: Vital Signs Date Time Temp Pulse Resp B/P (MAP) Pulse Ox O2 Delivery O2 Flow Rate FiO2 04/11/19 08:51 101 154/71 04/11/19 04:17 97.8 20 96 Room Air I & O 04/10/19 04/10/19 04/11/19 15:00 23:00 07:00 Intake Total 720 ml 720 ml Balance 720 ml 720 ml Current Medications: I have reviewed the current psychotropics carefully including drug interactions. Risk benefit ratio favors no change other than as noted in my dictated progress note. Diagnosis: Problems: (1) Bipolar affective, mixed (2) Major depressive disorder with psychotic features (3) Impulse control disorder (4) Anxiety disorder AMBER SWAIN MD Apr 11, 2019 18:33
--- NOTE | 2019-04-12 03:05 | PN ---
DATE: 04/10/2019 PSYCHIATRIC PROGRESS NOTE This late entry 04/10/2019 covers elements not covered in my initial note. SUBJECTIVE: I met with the patient at length the evening of 04/10/2019. The patient slept 7-1/4 hours previous night. She has done reasonably on the unit during the day, but remains hyperverbal, though less so than before. She remains anxious, intrusive with other patients and I addressed this with her. She was on the telephone with her right prior to my visit, but did interrupt this call to visit with me and much later was calling him back again though quite appropriate. She told one of the other patients that only Catholics can have communion. REVIEW OF SYSTEMS: Ambulation impaired with walker. No CV, , pulmonary, eye system symptoms on review. MENTAL STATUS EXAM: Reasonably oriented. Speech coherent, somewhat pressured. Abstraction fair, computation impaired, language function intact, attention span short. Mood and affect despite the above is improved. LABORATORY DATA: Reviewed. IMPRESSION: Unchanged from initial note. PLAN: No change from initial note with a plan to discharge home to outpatient psychiatric treatment on 04/11. AMBER SWAIN MD DR: REY/nabor JOB#: [id number] / [id number]
== END 2019-04-11 10:00 | disposition home or self-care (01) | DRG 885 ==
LOC: GEROPSY 11:27
PROVIDERS: ADMIT Psychiatry & Neurology Psychiatry; ATTEND Psychiatry & Neurology Psychiatry
DX: F31.60 Bipolar disorder, current episode mixed, unspecified (principal); N39.0 Urinary tract infection, site not specified; E46 Unspecified protein-calorie malnutrition; R45.851 Suicidal ideations; F03.91 Unspecified dementia, unspecified severity, with behavioral disturbance; F41.9 Anxiety disorder, unspecified; F63.9 Impulse disorder, unspecified; Z66 Do not resuscitate; Z68.32 Body mass index [BMI] 32.0-32.9, adult; D64.9 Anemia, unspecified; E55.9 Vitamin D deficiency, unspecified; E78.5 Hyperlipidemia, unspecified; F60.9 Personality disorder, unspecified; G25.81 Restless legs syndrome; H91.91 Unspecified hearing loss, right ear; I10 Essential (primary) hypertension; J32.4 Chronic pansinusitis; K21.9 Gastro-esophageal reflux disease without esophagitis; Z87.440 Personal history of urinary (tract) infections; H66.90 Otitis media, unspecified, unspecified ear; M19.90 Unspecified osteoarthritis, unspecified site
CPT/HCPCS: 36415; 80053; 80061; 82306; 83036; 83540; 83550; 83735; 84436; 84480; 85025; 86592; 93005; 97110; 97116; 97530; 97535